=== PATIENT | female | born 1990 | race Caucasian/White ===

== ENCOUNTER 2016-11-30 14:31 | Emergency (ER) | payer BC ==
[~2016-11-30] VITALS: Ht 170.2 cm; Wt 65.9 kg
[2016-11-30 14:35] VITALS: BP 117/73; PULSE 63; TEMP 98.9
[2016-11-30] MEDS ORDERED: ENSKYCE 0.15 MG1 TAB (14:39)
[2016-11-30] MEDS ORDERED: FLEXERIL 1010 MG/TAB PO (17:01)
[2016-11-30] MEDS ORDERED: NORCO 325 MG-51 TAB PO (17:01)
== END 2016-11-30 17:15 | disposition home or self-care (01) ==
LOC: COL.ER 14:31
DX: M54.5 Low back pain (principal)
CPT/HCPCS: J1885; J2360

== ENCOUNTER 2016-12-06 16:46 | Emergency (ER) | payer BC ==
[~2016-12-06] VITALS: Ht 170.2 cm; Wt 56.8 kg
[~2016-12-06 16:46] MED LIST: ENSKYCE 0.15 MG1 TAB; FLEXERIL 1010 MG/TAB PO; NORCO 325 MG-51 TAB PO
[2016-12-06 16:52] VITALS: BP 113/68; TEMP 98.7
[2016-12-06] MEDS ORDERED: ZOFRAN ODT4 MG PO (18:01)
[2016-12-06 18:03] LABS: PH 7 (5-8); URINE APPEARANCE Hazy; URINE BACTERIA Rare /hpf; URINE BILIRUBIN Negative (NEGATIVE); URINE BLOOD Negative (NEGATIVE); URINE COLOR Yellow; URINE GLUCOSE Negative (NEGATIVE); URINE KETONE Negative (NEGATIVE); URINE RBC 0-2 /hpf; URINE UROBILINOGEN Negative (NEGATIVE)
[2016-12-06 18:13] VITALS: PULSE 69
== END 2016-12-06 18:14 | disposition home or self-care (01) ==
LOC: COL.ER 16:46
PROVIDERS: Physician Assistant
DX: M54.5 Low back pain (principal)

== ENCOUNTER → 2019-09-16 | Outpatient (CLI) | payer BC ==
[~2019-09-16] MED LIST changes: +ZOFRAN ODT4 MG PO
== END ==
LOC: MC.RAD 09:39
DX: N63.11 Unspecified lump in the right breast, upper outer quadrant (principal)

== ENCOUNTER → 2019-10-06 | Outpatient (CLI) | payer BC | LOC: MC.RAD 09-24 13:00 | DX: N63.10 Unspecified lump in the right breast, unspecified quadrant (principal); Z98.82 Breast implant status ==